=== PATIENT | male | born 1950 | race Caucasian/White ===

== ENCOUNTER 2017-03-28 09:02 | Emergency (ER) | payer BC, OTHER ==
[2017-03-28 09:14] VITALS: TEMP 95.5; BMI 27.2
--- NOTE | 2017-03-28 09:51 | PDOC ---
History of Present Illness - General Chief Complaint: Injury Stated Complaint: FALL,HEAD TRAUMA, ANKLE PAIN Time Seen by Provider: 03/28/17 09:18 - History of Present Illness Initial Comments: 03/28/17 09:47 CHIEF COMPLAINT: fall HISTORY OF PRESENT ILLNESS: 67 yo M with hx of IDDM, HTN, HLD, herniated discs presents to ED s/p fall approximately one hour ago. Patient states he was walking down the stairs outside his house when he "missed a step and took a bad fall." Patient hit the the back of his head on the concrete and states "I guess I rolled my ankle because it hurts." Patient reports that he felt a little "numbness and tingling to my R hand right after the fall but it's fine now." No recent travel or sick contacts. PAST MEDICAL HISTORY: as per HPI FAMILY HISTORY: Denies SOCIAL HISTORY: Former smoker, quit 30 years ago. Denies alcohol, illicit drug use. SURGICAL HISTORY: Denies ALLERGIES: No known drug allergies REVIEW OF SYSTEMS General/Constitutional: Denies fever or chills. Denies weakness, weight change. HEENT: "I hit the back of my head on the concrete." Denies change in vision. Denies ear pain or discharge. Denies sore throat. Cardiovascular: Denies chest pain or shortness of breath. Respiratory: Denies cough, wheezing, or hemoptysis. Gastrointestinal: Denies nausea, vomiting, diarrhea or constipation. Denies rectal bleeding. Genitourinary: Denies dysuria, frequency, or change in urination. Musculoskeletal: Pain to L ankle. Denies joint or muscle swelling or pain. Denies neck or back pain. Skin and breasts: Denies rash or easy bruising. Neurologic: Denies headache, vertigo, loss of consciousness, or loss of sensation. PHYSICAL EXAM General Appearance: Well-appearing, appropriately dressed. No apparent distress. HEENT: Erythema approximately 2 cm in diameter to L occipital lobe. EOMI, PERRLA , normal ENT inspection, normal voice, TMs normal, pharynx normal. No conjunctival pallor. No photophobia, scleral icterus. Neck: Supple. Trachea midline. No tenderness, rigidity, carotid bruit, stridor , lymphadenopathy, or thyromegaly. Respiratory/Chest: Lungs CTAB. Cardiovascular: RRR. S1, S2. Vascular Pulses: Dorsalis-Pedis (R): 2+, Dorsalis-Pedis (L): 2+ Gastrointestinal/Abdominal: Protuberant abdomen, soft, non-distended. No tenderness or rebound tenderness. No organomegaly, pulsatile mass, guarding, hernia, hepatomegaly, splenomegaly. Lymphatic: No adenopathy, tenderness. Musculoskeletal/Extremities: Swelling and tenderness to L lateral malleolus. Normal inspection. FROM of all extremities, normal capillary refill. Pelvis Stable. No CVA tenderness. No tenderness to extremities, pedal edema, swelling , erythema or deformity. Integumentary: Appropriate color, dry, warm. No cyanosis, erythema, jaundice or rash Neurologic: yard switcher II-XII intact. Fully oriented, alert. Appropriate mood/affect. Motor strength 5/5. No appreciable EOM palsy, facial droop or sensory deficit. A&Ox3, follow commands, respond appropriately CN2-12: conjugate gaze, pupil round, equal and reactive to light. Visual field full to confrontation. EOMI without nystagmus, pursuit is smooth without saccade. Facial sensation and muscle activation intact bilaterally. Hearing intact bilaterally. Palate elevate symmetrically. Shoulder shrug and neck turn full strength. Tongue protrude midline. Motor: UE and LE strength 5/5 throughout bilaterally. Muscle tone and bulk normal. Sensory: pin prick & temp : BUE & BLE intact and equal bilaterally Vibration & propioception: intact bilaterally at 1st MCP and MTP joints. no sensory level noted on trunk Cerebellar: Rapid-alternating movement with regular rhythm without bradykinesia. Skdcgc-ln-bops and fjhg-ix-nbrk intact bilaterally without dysmetria or overshoot. Gait narrow based. No shuffling. Full hip flexion and knee flexion. Negative Romberg No involuntary movement noted. No pronator drift. No clonus. 03/28/17 11:20 03/28/17 11:34 Past History - Past Medical History Allergies/Adverse Reactions: Allergies Allergy/AdvReac Type Severity Reaction Status Date / Time lidocaine Allergy Severe Low Blood Verified 03/28/17 10:08 Pressure No Known Drug Allergies Allergy Verified 03/28/17 09:09 Home Medications: Ambulatory Orders Aspirin [Aspirin EC] 325 mg PO DAILY 06/09/13 Insulin Detemir [Levemir Flexpen] 40 unit SQ HS 06/09/13 Lisinopril [Prinivil] 5 mg PO DAILY 06/09/13 Metformin HCl [Glucophage] 1,000 mg PO BID 06/09/13 Metoprolol Succinate [Toprol XL -] 200 mg PO DAILY 06/09/13 Simvastatin [Zocor] 80 mg PO DAILY 06/09/13 Gabapentin 300 mg PO BID 03/21/15 Insulin Aspart [Novolog Flexpen] 32 unit SQ AC 03/21/15 Oxycodone HCl/Acetaminophen [Percocet 5/325 -] 1 - 2 tab PO Q6H #20 tab Oxycodone HCl/Acetaminophen [Percocet 5-325 mg Tablet] 1 tab PO Q6H #12 tablet MDD 4 03/28/17 Anemia: No Asthma: No Cancer: No Cardiac Disorders: Yes (PT STATES HE HAS BLOCKAGES AND TXED WITH MEDICATION X 10 YRS AGO) CVA: No COPD: No CHF: No Dementia: No Diabetes: Yes (20 YRS) GI Disorders: No Disorders: No HTN: No Hypercholesterolemia: Yes Liver Disease: No Seizures: No Thyroid Disease: No - Surgical History Abdominal Surgery: Yes (BILATERAL INGUINAL HERNIA REPAIR 1975) Appendectomy: No Cardiac Surgery: Yes (ANGIOPLASTY APPROX 10 YRS AGO) Cholecystectomy: No Lung Surgery: No Neurologic Surgery: No Orthopedic Surgery: Yes (LEFT SHOULDER ARTHROSCOPY 12/04/14) - Psycho/Social/Smoking Cessation Hx Anxiety: No Suicidal Ideation: No Smoking Status: No Smoking History: Former smoker Have you smoked in the past 12 months: No Number of Cigarettes Smoked Daily: 1 If you are a former smoker, when did you quit?: 1990S Cigars Per Day: 1 Information on smoking cessation initiated: No Hx Alcohol Use: Yes (occassional) Drug/Substance Use Hx: No Substance Use Type: Alcohol Hx Substance Use Treatment: No *Physical Exam - Vital Signs Last Vital Signs Temp Pulse Resp BP Pulse Ox 95.5 F L 73 19 153/77 98 03/28/17 09:09 03/28/17 09:09 03/28/17 09:09 03/28/17 09:09 03/28/17 09:09 ED Treatment Course - LABORATORY CBC & Chemistry Diagram: 03/28/17 09:50 03/28/17 09:50 - RADIOLOGY Radiology Studies Ordered: Category Date Time Status CERVICAL SPINE CT W/O CONTR [CT] Stat CT Scan 03/28/17 09:[address] WITHOUT CONTRAST [CT] Stat CT Scan 03/28/17 09:36 Ordered ANKLE & FOOT-LEFT* [RAD] Stat Radiology 03/28/17 09:37 Ordered Medical Decision Making - Medical Decision Making 03/28/17 11:34 67 yo M with hx of IDDM, HTN, HLD, herniated discs presents to ED s/p fall approximately one hour ago. -CBC, CMP, PT/INR -Head & C-spine Ct -Left ankle/ft x-ray CT negative for bleed X-ray wet read positive for fracture of distal fibula -Air cast -Crutches -Percocet 03/28/17 11:43 Rx Percocet sent to pharm. Patient to f/u with ortho. Advised patient to take medication as prescribed and f/u with ortho. Advised patient of signs and symptoms for return to ER; patient verbalized underestanding and agrees to plan. *DC/Admit/Observation/Transfer Diagnosis at time of Disposition: Fracture of distal fibula Qualifiers: Encounter type: initial encounter Fracture type: closed Fracture morphology: unspecified fracture morphology Laterality: left Qualified Code(s): S82.832A - Other fracture of upper and lower end of left fibula, initial encounter for closed fracture - Discharge Dispostion Disposition: HOME Condition at time of disposition: Stable Admit: No - Prescriptions Prescriptions: Oxycodone HCl/Acetaminophen [Percocet 5-325 mg Tablet] 1 tab PO Q6H #12 tablet MDD 4 - Referrals Referrals: Zach Monzon MD [Staff Physician] - - Patient Instructions Printed Discharge Instructions: Ankle Fracture Additional Instructions: Please take medication as prescribed. Do not drive or operate machinery while taking Percocet. As discussed, you need to follow up with orthopedics in the next 2-3 days. If you experience any change in vision, speech, develop difficulty swallowing or walking, or you develop a headache, dizziness, vomiting , or any new or worsening symptoms, please return to the ER.
[2017-03-28 09:59] LABS: BASOPHIL 0.6 % (0-2.0); EOSINOPHIL 1.2 % (0-4.5); MCH 33.3 pg (25.7-33.7); MCHC 35.4 g/dl (32.0-35.9); MEAN CELL VOLUME 94.2 fl (80-96); MEAN PLT VOLUME 7.9 fl (7.5-11.1); PLATELET COUNT 147 K/MM3 (134-434); RDW 12.6 % (11.9-15.9); WHITE BLOOD COUNT 8.3 K/mm3 (4.0-10.0)
--- NOTE | 2017-03-28 10:12 | EKG ---
Test Reason : Blood Pressure : / mmHG Vent. Rate : 074 BPM Atrial Rate : 074 BPM P-R Int : 136 ms QRS Dur : 084 ms QT Int : 380 ms P-R-T Axes : 062 036 056 degrees QTc Int : 421 ms NORMAL SINUS RHYTHM NORMAL ECG WHEN COMPARED WITH ECG OF 03-JUN-2011 09:40, NO SIGNIFICANT CHANGE WAS FOUND Confirmed by VALORIE JHAVERI MD ([id number]) on 03/28/2017 10:12:38 AM Referred By: Confirmed By:VALORIE JHAVERI MD
[2017-03-28 10:14] LABS: INR 1.2 (0.82-1.09); PROTHROMBIN TIME (PATIENT) 13.3 SEC (9.98-11.88)
[2017-03-28 10:26] LABS: ALBUMIN 4.1 g/dl (3.4-5.0); ANION GAP 8 (8-16); CALCIUM 8.7 mg/dL (8.5-10.1); CO2 27 mmol/L (21-32); COCKROFT - GAULT 86.18; GLUCOSE,RANDOM 285 mg/dL (74-106); SGOT/AST 20 U/L (15-37); SGPT/ALT 34 U/L (12-78)
[2017-03-28 10:28] LABS: ALK PHOS 109 U/L (45-117); BILIRUBIN,TOTAL 1.3 mg/dL (0.2-1.0); TOT PROT 7.1 g/dl (6.4-8.2)
[2017-03-28] MEDS ORDERED: OXYCODONE/APAP 5/325MG COMBO TABLET PO ONE (11:43)
[2017-03-28] MEDS ORDERED: OXYCODONE/APAP 5/325MG COMBO TABLET ONE (12:12)
[2017-03-28 13:40] VITALS: BP 140/70; PULSE 80
== END 2017-03-28 12:48 | disposition home or self-care (01) ==
LOC: JER 09:02
PROC: 2W3MX1Z Immobilization of Left Lower Extremity using Splint (ICD-10-PCS; principal; 2017-03-28)
DX: S82.832A Other fracture of upper and lower end of left fibula, initial encounter for closed fracture (principal); W10.8XXA Fall (on) (from) other stairs and steps, initial encounter; Y93.01 Activity, walking, marching and hiking; Y92.018 Other place in single-family (private) house as the place of occurrence of the external cause; I10 Essential (primary) hypertension; E11.9 Type 2 diabetes mellitus without complications; Z79.4 Long term (current) use of insulin; E78.00 Pure hypercholesterolemia, unspecified
CPT/HCPCS: 29515; 36415; 70450-TC; 72125-TC; 73610-TC-LT; 73630-TC-LT; 80053; 85025; 85610; 93005; 93010; 99284-25

== ENCOUNTER 2017-03-29 17:29 | Emergency (ER) | payer OTHER ==
[2017-03-29 17:35] VITALS: BP 148/57; PULSE 86; TEMP 98.3; BMI 34.4
--- NOTE | 2017-03-29 17:53 | PDOC ---
History of Present Illness - General Chief Complaint: Edema Stated Complaint: NUMBNESSTO TOE Time Seen by Provider: 03/29/17 17:42 History Source: Patient Exam Limitations: No Limitations - History of Present Illness Initial Comments: CHIEF COMPLAINT: 67 y/o afebrile male with PMH HTN, HLD, IDDM c/o left foot swelling. HISTORY OF PRESENT ILLNESS: The patient was seen here yesterday in the main ER and was diagnosed with a left distal fibula fracture. He was put in an air cast to allow for swelling and was given crutches. His admits he is not using the crutches because he doesn't know how, and he is walking on his broken foot. The patient is now complaining that he can't feel his left toes because of the swelling. The patient is on a daily aspirin. Vital signs on arrival are within normal limits. REVIEW OF SYSTEMS: GENERAL/CONSTITUTIONAL: No fever/chills. No weakness. No weight change. MUSCULOSKELETAL: +swollen and painful left foot. +decreased sensation in left toes. No neck or back pain. SKIN: No rash or easy bruising. NEUROLOGIC: No headache, vertigo, loss of consciousness, or loss of sensation. PHYSICAL EXAM: VITAL_SIGNS: within normal limits GENERAL_APPEARANCE: alert, cooperative, mild obvious discomfort. MENTAL_STATUS: speech clear, oriented X 3, responds appropriately to questions. NEURO: motor intact in injured extremity. Decreased sensation to light and sharp touch on left 2nd-5th toes. EXTREMITIES: good pulse in injured extremity. Significant edema and ecchymosis to left dorsal foot. Dorsum of foot is not TTP nor hot to touch. SKIN: warm, dry, good color. Past History - Past Medical History Allergies/Adverse Reactions: Allergies Allergy/AdvReac Type Severity Reaction Status Date / Time lidocaine Allergy Severe Low Blood Verified 03/29/17 17:32 Pressure No Known Drug Allergies Allergy Verified 03/29/17 17:32 Home Medications: Ambulatory Orders Aspirin [Aspirin EC] 325 mg PO DAILY 06/09/13 Insulin Detemir [Levemir Flexpen] 40 unit SQ HS 06/09/13 Lisinopril [Prinivil] 5 mg PO DAILY 06/09/13 Metformin HCl [Glucophage] 1,000 mg PO BID 06/09/13 Metoprolol Succinate [Toprol XL -] 200 mg PO DAILY 06/09/13 Simvastatin [Zocor] 80 mg PO DAILY 06/09/13 Gabapentin 300 mg PO BID 03/21/15 Insulin Aspart [Novolog Flexpen] 32 unit SQ AC 03/21/15 Oxycodone HCl/Acetaminophen [Percocet 5/325 -] 1 - 2 tab PO Q6H #20 tab Oxycodone HCl/Acetaminophen [Percocet 5-325 mg Tablet] 1 tab PO Q6H #12 tablet MDD 4 03/28/17 Anemia: No Asthma: No Cancer: No Cardiac Disorders: Yes (PT STATES HE HAS BLOCKAGES AND TXED WITH MEDICATION X 10 YRS AGO) CVA: No COPD: No CHF: No Dementia: No Diabetes: Yes (20 YRS) GI Disorders: No Disorders: No HTN: No Hypercholesterolemia: Yes Liver Disease: No Seizures: No Thyroid Disease: No - Surgical History Abdominal Surgery: Yes (BILATERAL INGUINAL HERNIA REPAIR 1975) Appendectomy: No Cardiac Surgery: Yes (ANGIOPLASTY APPROX 10 YRS AGO) Cholecystectomy: No Lung Surgery: No Neurologic Surgery: No Orthopedic Surgery: Yes (LEFT SHOULDER ARTHROSCOPY 12/04/14) - Psycho/Social/Smoking Cessation Hx Anxiety: No Suicidal Ideation: No Smoking Status: No Smoking History: Current some day smoker Have you smoked in the past 12 months: Yes Number of Cigarettes Smoked Daily: 1 If you are a former smoker, when did you quit?: 1990S Cigars Per Day: 1 Information on smoking cessation initiated: No Hx Alcohol Use: No Drug/Substance Use Hx: No Substance Use Type: Alcohol Hx Substance Use Treatment: No *Physical Exam - Vital Signs Last Vital Signs Temp Pulse Resp BP Pulse Ox 98.3 F 86 18 148/57 100 03/29/17 17:32 03/29/17 17:32 03/29/17 17:32 03/29/17 17:32 03/29/17 17:32 Medical Decision Making - Medical Decision Making A/P: 67 y/o afebrile male with diagnosed left distal fibula fracture yesterday here for increased swelling and decreased sensation in left toes. Dr. Andre , who saw the patient yesterday with QUINN Osborn, reassessed the patient today and believes the foot is just swollen from overuse and aspirin regimen. Suggested call to ortho. 1. Ortho paged The patient was given instructions on how to use crutches and instructed to not to bear weight on affected extremity. spoke with ESTUARDO Mendiola from Dr. Jeffries's office. He states there is nothing much to do except have the patient come to the office tomorrow morning instead of . He said Dr. Jeffries has plenty of appointments tomorrow morning in [place] and the patient should call first thing in the morning to schedule one. The patient and his were given instructions to not bear weight, use crutches at all times, apply ice and elevate foot as much as possible and call Dr. Jeffries's office tomorrow morning. The patient verbalizes understanding of all instructions, has no further questions and is awaiting discharge. *DC/Admit/Observation/Transfer Diagnosis at time of Disposition: Fracture of distal fibula - Discharge Dispostion Disposition: HOME Condition at time of disposition: Good - Patient Instructions Printed Discharge Instructions: DI for Shinbone Fracture, How to Use Crutches, How To Perform RICE (Rest, Ice, Compress, Elevate) Additional Instructions: Discharge Instructions: -Call Dr. Jeffries's office in the morning to get an appointment for tomorrow morning -DO NOT BEAR WEIGHT ON YOUR LEFT FOOT -Elevate and ice your foot as much as possible to help with swelling -Return to the ER with any worsening or concerning symptoms.
== END 2017-03-29 19:20 | disposition home or self-care (01) ==
LOC: JER 17:29 → JERFT 17:29
DX: S82.832D Other fracture of upper and lower end of left fibula, subsequent encounter for closed fracture with routine healing (principal); W10.8XXD Fall (on) (from) other stairs and steps, subsequent encounter; Y93.01 Activity, walking, marching and hiking; Y92.018 Other place in single-family (private) house as the place of occurrence of the external cause
CPT/HCPCS: 99281-25

== ENCOUNTER 2020-01-09 05:47 | Day surgery (SDC) | payer OTHER ==
[2020-01-03 10:55] VITALS: BMI 26.5
[2020-01-09] MEDS ORDERED: MIDAZOLAM HCL 2 MG/2 ML SINGLE DOSE VIAL ONE (07:07)
[2020-01-09] MEDS ORDERED: ROPIVACAINE HCL 0.5% 30ML VIAL ONE (07:07)
[2020-01-09] MEDS ORDERED: PROPOFOL 20 ML ONE ×2 (07:17)
[2020-01-09] MEDS ORDERED: SUCCINYLCHOLINE CHLORIDE 200 MG/10 ML SYRINGE ONE (07:17)
[2020-01-09] MEDS ORDERED: EPINEPHrine 1:1,000 1 MG/1 ML - 30ML VIAL (INJECTION) ONE (07:20)
[2020-01-09] MEDS ORDERED: ONDANSETRON 4 MG/2 ML VIAL ONE ×2 (08:08→09:16)
[2020-01-09] MEDS ORDERED: ceFAZolin SODIUM 1 GM VIAL ONE (08:08)
[2020-01-09] MEDS ORDERED: METOPROLOL TARTRATE 5 MG/5 ML VIAL ONE (08:17)
[2020-01-09] MEDS ORDERED: ESMOLOL HCL 100,000 MCG/10 ML VIAL ONE (08:17)
[2020-01-09] MEDS ORDERED: ONDANSETRON 2 MG/1 ML - 20ML MDV IVPB ONE (09:15)
--- NOTE | 2020-01-09 10:55 | OP ---
DATE OF OPERATION: 01/09/2020 PREOPERATIVE DIAGNOSES: 1. Right shoulder adhesive capsulitis. 2. Right shoulder impingement with partial thickness rotator cuff tear. POSTOPERATIVE DIAGNOSES: 1. Right shoulder adhesive capsulitis. 2. Right shoulder impingement with partial thickness rotator cuff tear. OPERATIVE PROCEDURES: 1. Right shoulder arthroscopic lysis of adhesions and capsule release. 2. Right shoulder arthroscopic subacromial decompression and anterior-inferior acromioplasty. SURGEON: Jayce Brooks MD [employer] RESEARCH ASSOCIATE: ESTUARDO Taylor ANESTHESIA: Regional. COMPLICATIONS: None. ESTIMATED BLOOD LOSS: Minimal. INDICATIONS FOR PROCEDURE: The patient is a 70-year-old male with the above findings, indicated for operative treatment. The risks, benefits and alternatives were discussed with the patient at length and proper informed consent was obtained. DESCRIPTION OF PROCEDURE: After proper identification of the patient and correct operative site, the patient was brought to the operating room and placed supine on the table, with all bony prominences well-padded. Sedation and regional anesthesia were given. The right upper extremity was prepped and draped in the usual sterile fashion, with the patient in the Beach chair position, with all points of contact well padded and in-line cervical positioning maintained throughout the procedure. Operative arthroscopy was performed through posterior, lateral and anterior portals. All portals were made with skin incision only with blunt dissection down to joint to joint capsule. The glenohumeral joint was first observed and found to be very tight. Mild chondromalacia was noted and mild labral fraying, which was debrided with a mechanical shaver. Significant scarring of the anterior capsule was noted, and the capsule was released using an ArthroWand from the biceps tendon area all the way down to the 5 o'clock position. This provided full motion of the shoulder. Prior to doing this, the shoulder had full internal rotation and external rotation, but forward elevation only to 110 degrees. After release, he had 180 degrees of forward elevation. The rotator cuff was observed and found to have mild articular-sided fraying but no full-thickness tear. This was debrided. The biceps tendon was found to be intact, without any significant damage in the shoulder and in the extra-articular portion. The arthroscope was then introduced into the subacromial space, where moderate to severe bursitis was noted. This was debrided with the mechanical shaver and ArthroWand. Partial thickness fraying, less than 25%, of the supraspinatus was noted, and this was debrided with the mechanical shaver. A moderate-sized anterior-inferior subacromial spur was noted and an anterior-inferior acromioplasty was performed. The shoulder was taken through a range of motion and no further impingement was noted. The wounds were irrigated and repaired with 3-0 nylon suture. Sterile dressings and sling were placed. The patient was reversed from anesthesia and brought to the recovery room in stable condition. He tolerated the procedure well. Gage Mendiola, the assistant director of admissions, was integral throughout this procedure. The procedure could not have been performed without a skilled operative assistant director of admissions. JAYCE BROOKS M.D. [id number]
[2020-01-09 11:21] VITALS: TEMP 97.8
[2020-01-09] MEDS ORDERED: oxyCODONE HCL 5 MG TABLET ONE (11:23)
[2020-01-09] MEDS ORDERED: ONDANSETRON 4 MG/2 ML VIAL IVPUSH PRN (11:51)
[2020-01-09] MEDS ORDERED: oxyCODONE HCL 5 MG TABLET PO PRN (11:51)
[2020-01-09] MEDS ORDERED: LACTATED RINGERS SOLUTION 1,000 ML IV SCH (12:00)
[2020-01-09 12:45] VITALS: BP 137/68; PULSE 82
== END 2020-01-09 12:15 | disposition home or self-care (01) ==
LOC: FASU 05:47
PROVIDERS: ATTEND Orthopaedic Surgery Hand Surgery
PROC: 0RNJ4ZZ Release Right Shoulder Joint, Percutaneous Endoscopic Approach (ICD-10-PCS; principal; 2020-01-09 08:30)
DX: M75.111 Incomplete rotator cuff tear or rupture of right shoulder, not specified as traumatic (principal); M75.01 Adhesive capsulitis of right shoulder; M75.41 Impingement syndrome of right shoulder; M94.211 Chondromalacia, right shoulder; M75.51 Bursitis of right shoulder
CPT/HCPCS: 82962; 94760; J2405

== ENCOUNTER 2020-10-10 14:04 | Inpatient (IN) | payer OTHER ==
[2020-10-10] MEDS ORDERED: MECLIZINE HCL 25 MG TABLET (FP) PO ONE (15:45)
[2020-10-10] MEDS ORDERED: ONDANSETRON 4 MG/2 ML VIAL IVPUSH ONE (16:04)
[2020-10-10] MEDS ORDERED: MECLIZINE HCL 25 MG TABLET (FP) ONE ×2 (16:13→21:54)
[2020-10-10 16:52] LABS: BASO % 0.7 % (0-2.0); EOS % 1.4 % (0-4.5); HEMATOCRIT 40.5 % (35.4-49); HEMOGLOBIN 14.5 GM/dL (11.7-16.9); LYMPH % 21.7 % (8-40); MCH 33.5 pg (25.7-33.7); MCHC 35.9 g/dl (32.0-35.9); MEAN CELL VOLUME 93.5 fl (80-96); MEAN PLT VOLUME 8.6 fl (7.5-11.1); MONO % 8.7 % (3.8-10.2); NEUT % 67.5 % (42.8-82.8); PLATELET COUNT 154 K/MM3 (134-434); RBC 4.33 M/mm3 (4.00-5.60); RDW 12.7 % (11.9-15.9); WHITE BLOOD COUNT 9.3 K/mm3 (4.0-10.0)
[2020-10-10 17:17] LABS: POTASSIUM 4.3 mmol/L (3.5-5.1)
[2020-10-10 17:19] LABS: ALBUMIN 4.1 g/dl (3.4-5.0); CALCIUM 9.4 mg/dL (8.5-10.1)
[2020-10-10 17:22] LABS: CREATININE 1.1 mg/dL (0.55-1.3)
[2020-10-10 17:24] LABS: BILIRUBIN,TOTAL 1.3 mg/dL (0.2-1); TOT PROT 7.1 g/dl (6.4-8.2)
[2020-10-10] MEDS ORDERED: SODIUM CHLORIDE 0.9% 500 ML INFUS.BAG IV ONE (18:43)
[2020-10-10] MEDS ORDERED: ASPIRIN 81 MG CHEWABLE TABLETS PO ONE (21:37)
[2020-10-10] MEDS ORDERED: SODIUM CHLORIDE 1,000 ML IV SCH (21:45)
[2020-10-10] MEDS ORDERED: ASPIRIN 81 MG CHEWABLE TABLETS ONE (21:54)
[2020-10-10] MEDS: MECLIZINE HCL 25 MG TABLET (FP) PO SCH (22:30)
[2020-10-10] MEDS: INSULIN SLIDING SCALE (NOVOLOG) 1 VIAL SQ SCH (22:33)
[2020-10-10] MEDS ORDERED: ONDANSETRON 4 MG/2 ML VIAL IVPUSH PRN (23:55)
[2020-10-11 05:36] VITALS: BMI 25.9
[2020-10-11] MEDS: INSULIN SLIDING SCALE (NOVOLOG) 1 VIAL SQ SCH ×4 (06:44→21:13)
[2020-10-11] MEDS: MECLIZINE HCL 25 MG TABLET (FP) PO SCH ×3 (06:44→21:13)
[2020-10-11 09:09] LABS: HEMATOCRIT 37.5 % (35.4-49); MCH 32.7 pg (25.7-33.7); MCHC 34.6 g/dl (32.0-35.9); MEAN CELL VOLUME 94.5 fl (80-96); MEAN PLT VOLUME 8.6 fl (7.5-11.1); PLATELET COUNT 137 K/MM3 (134-434); RBC 3.97 M/mm3 (4.00-5.60); RDW 12.7 % (11.9-15.9); WHITE BLOOD COUNT 6.4 K/mm3 (4.0-10.0)
[2020-10-11 09:41] LABS: POTASSIUM 4.1 mmol/L (3.5-5.1)
[2020-10-11 09:46] LABS: ALBUMIN 3.7 g/dl (3.4-5.0)
[2020-10-11 09:47] LABS: BLOOD UREA NITROGEN 25.3 mg/dL (7-18)
[2020-10-11 09:49] LABS: CALCIUM 8.6 mg/dL (8.5-10.1)
[2020-10-11 09:50] LABS: PHOSPHOROUS 3.4 mg/dL (2.5-4.9)
[2020-10-11 09:51] LABS: BILIRUBIN,TOTAL 1.1 mg/dL (0.2-1); CREATININE 1.2 mg/dL (0.55-1.3); MAGNESIUM 1.8 mg/dL (1.8-2.4); TOT PROT 6.2 g/dl (6.4-8.2)
[2020-10-11] MEDS: ASPIRIN 81 MG CHEWABLE TABLETS PO SCH (10:50)
[2020-10-11] MEDS: ENOXAPARIN NA (PORCINE) 40 MG/0.4 ML DISP.SYRIN SQ SCH (10:50)
[2020-10-11] MEDS: LISINOPRIL 5 MG TABLET PO SCH (10:51)
[2020-10-11] MEDS: CYANOCOBALAMIN (VITAMIN B-12) 100 MCG TABLET PO SCH (18:08)
[2020-10-11] MEDS ORDERED: INSULIN (NOVOLOG) ASPART 100 UNITS/ML 10ML VIAL ONE (20:54)
[2020-10-11] MEDS: ATORVASTATIN CA 40 MG TABLET (FP) PO SCH (21:13)
[2020-10-12] MEDS: MECLIZINE HCL 25 MG TABLET (FP) PO SCH ×3 (05:56→21:49)
[2020-10-12] MEDS: INSULIN SLIDING SCALE (NOVOLOG) 1 VIAL SQ SCH ×3 (05:59→21:52)
[2020-10-12] MEDS: CYANOCOBALAMIN (VITAMIN B-12) 100 MCG TABLET PO SCH (10:10)
[2020-10-12] MEDS: ASPIRIN 81 MG CHEWABLE TABLETS PO SCH (10:10)
[2020-10-12] MEDS: LISINOPRIL 5 MG TABLET PO SCH (10:10)
[2020-10-12] MEDS: THIAMINE HCL 100 MG TABLET (FP) PO SCH (10:10)
[2020-10-12] MEDS: ENOXAPARIN NA (PORCINE) 40 MG/0.4 ML DISP.SYRIN SQ SCH (10:10)
[2020-10-12] MEDS: ATORVASTATIN CA 40 MG TABLET (FP) PO SCH (21:49)
[2020-10-13] MEDS: MECLIZINE HCL 25 MG TABLET (FP) PO SCH (06:33)
[2020-10-13] MEDS: INSULIN SLIDING SCALE (NOVOLOG) 1 VIAL SQ SCH (06:33)
[2020-10-13 09:00] VITALS: BP 121/56; PULSE 66; TEMP 98
[2020-10-13] MEDS: CYANOCOBALAMIN (VITAMIN B-12) 100 MCG TABLET PO SCH (09:54)
[2020-10-13] MEDS: ENOXAPARIN NA (PORCINE) 40 MG/0.4 ML DISP.SYRIN SQ SCH (09:55)
[2020-10-13] MEDS: LISINOPRIL 5 MG TABLET PO SCH (09:55)
[2020-10-13] MEDS: ASPIRIN 81 MG CHEWABLE TABLETS PO SCH (09:55)
[2020-10-13] MEDS: THIAMINE HCL 100 MG TABLET (FP) PO SCH (09:55)
== END 2020-10-13 10:33 | disposition home or self-care (01) | DRG 149 ==
LOC: JER 14:04 → JERBED 19:42 → J6S 10-11 03:26
PROVIDERS: ADMIT Hospitalist; ATTEND Student in an Organized Health Care Education/Training Program
DX: H81.10 Benign paroxysmal vertigo, unspecified ear (principal); E11.9 Type 2 diabetes mellitus without complications; I25.10 Atherosclerotic heart disease of native coronary artery without angina pectoris; I10 Essential (primary) hypertension; E78.5 Hyperlipidemia, unspecified; E11.69 Type 2 diabetes mellitus with other specified complication
CPT/HCPCS: 36415; 70450-TC; 70496-TC; 70498-TC; 70551-TC; 71045-TC-FY; 80053; 82465; 82962; 83036; 83735; 84100; 84443; 85025; 85027; 93005; 93010; 93880-TC; 99285-25; C9803; Q9967; U0003